=== PATIENT | male | born 1965 | race Caucasian/White ===

== ENCOUNTER 2016-10-25 10:00 | Emergency (ER) | payer OTHER | END 2016-10-25 10:40 | disposition home or self-care (01) | LOC: CED 10:00 → CFTX 10:00 | DX: R21 Rash and other nonspecific skin eruption (principal); E03.9 Hypothyroidism, unspecified; Z87.891 Personal history of nicotine dependence | CPT/HCPCS: 99282 ==

== ENCOUNTER 2016-12-08 12:50 | Emergency (ER) | payer OTHER | END 2016-12-08 13:48 | disposition home or self-care (01) | LOC: CED 12:50 | DX: R21 Rash and other nonspecific skin eruption (principal) | CPT/HCPCS: 99282 ==